=== PATIENT | male | born 1995 | race Hispanic/Latino ===

== ENCOUNTER 2022-12-06 01:43 | Observation (INO) | payer SELFPAY ==
[~2022-12-06] VITALS: Ht 175.3 cm; Wt 100.2 kg
[2022-12-06] VITALS (18 sets, daily range): BP systolic 97–137; BP diastolic 57–99
[2022-12-06 02:17] LABS: BASO% 0.4 % (0-3); EOS% 0.9 % (0-8); HEMATOCRIT 49.6 % (39.0-50.0); HEMOGLOBIN 16.5 g/dl (14.0-18.0); IMMATURE GRANULOCYTES 0.2 % (0.0-5.0); LYMPH% 34.2 % (15-41); MEAN CELL VOLUME 89.5 fL CALC (80.0-100.0); MEAN CORPUSCULAR HGB 29.8 pG CALC (26.0-32.0); MEAN CORPUSCULAR HGB CONC 33.3 g/dL CAL (32.0-36.0); MONO% 5.6 % (2-13); NEUT# 6.32 thou/uL (1.82-7.42); NEUT% 58.7 % (42-76); RED BLOOD COUNT 5.54 mill/uL (4.70-6.10); RED CELL DISTRI WIDTH 11.7 % (11.5-15.5)
[2022-12-06 02:31] LABS: ALBUMIN 4.7 g/dL (3.2-5.0); ALKALINE PHOSPHATASE 54 u/l (38-126); ANION GAP 12 (6-22 (CALC)); BUN 15 mg/dL (9-20); BUN/CREATININE RATIO 16 (12-20 (CALC)); CARBON DIOXIDE 26 mmol/l (22-30); CHLORIDE 104 mmol/l (95-108); CREATININE 0.9 mg/dL (0.7-1.3); GFR FOR AFR.AMER. > 60 ML/MIN (>=60 (CALC)); GFR OTHER RACES > 60 ML/MIN (>=60 (CALC)); POTASSIUM 3.7 mmol/l (3.5-5.1); SGOT/AST 27 u/l (17-59); SODIUM 139 mmol/l (137-146); TOTAL PROTEIN 7.8 g/dL (6.3-8.2)
[2022-12-06 02:32] LABS: INTERNATIONAL NORMALIZED RATIO 1.2 RATIO (0.7-1.3); PROTHROMBIN TIME 11.8 SECONDS (9.0-12.5)
[2022-12-06 06:23] LABS: URINE BILIRUBIN - DIPSTICK NEGATIVE (NEGATIVE); URINE BLOOD DIPSTICK NEGATIVE (NEGATIVE); URINE COLOR YELLOW; URINE GLUCOSE - DIPSTICK NEGATIVE (NEGATIVE); URINE KETONE NEGATIVE (NEGATIVE); URINE LEUK ESTERASE NEGATIVE (NEGATIVE); URINE PH 7.5 (4.5-8.0); URINE PROTEIN - DIPSTICK NEGATIVE (NEG-TRACE); URINE UROBILINOGEN - DIPSTICK 0.2 E.U./dL (0.2)
[2022-12-06 06:28] LABS: URINE NITRITE - DIPSTICK NEGATIVE (Negative)
[2022-12-06] MEDS ORDERED: MOTRIN800 MG PO (11:56)
== END 2022-12-06 15:59 | disposition home or self-care (01) | DRG 103 ==
LOC: ED 01:43 → ED-I 04:33 → ED 04:43 → MS2 04:47
PROVIDERS: Emergency Medicine; ADMIT Internal Medicine; ATTEND Internal Medicine
DX: R51.9 Headache, unspecified (principal); R20.0 Anesthesia of skin; R53.1 Weakness; Z56.6 Other physical and mental strain related to work; Z63.9 Problem related to primary support group, unspecified
CPT/HCPCS: A9579; G0378; Q9967